=== PATIENT | female | born 1955 | race Caucasian/White ===

== ENCOUNTER → 2018-09-29 | Outpatient (CLI) | payer BC ==
[~2018-09-29] MED LIST: TYLENOL 325MG325 MG PO
== END ==
LOC: MC.RAD 06:56
DX: Z12.31 Encounter for screening mammogram for malignant neoplasm of breast (principal)

== ENCOUNTER → 2019-11-28 | Outpatient (CLI) | payer MEDICARE | LOC: MC.RAD 13:00 | DX: Z12.31 Encounter for screening mammogram for malignant neoplasm of breast (principal) ==

== ENCOUNTER → 2020-08-09 | Outpatient (CLI) | payer MEDICARE, BC | LOC: ZCOL.LAB 10:35 | DX: Z20.828 Contact with and (suspected) exposure to other viral communicable diseases (principal) ==

== ENCOUNTER 2021-01-03 06:02 | Emergency (ER) | payer MEDICARE, BC ==
[~2021-01-03] VITALS: Ht 157.5 cm; Wt 65.0 kg
[2021-01-03 06:07] VITALS: BP 122/74; TEMP 98.3
[2021-01-03] MEDS ORDERED: PERCOCET 325 MG1 TA2 PO (07:11)
[2021-01-03 07:18] VITALS: PULSE 79
== END 2021-01-03 07:22 | disposition home or self-care (01) ==
LOC: COL.ER 06:02
DX: L27.1 Localized skin eruption due to drugs and medicaments taken internally (principal); T45.1X5A Adverse effect of antineoplastic and immunosuppressive drugs, initial encounter; Z85.09 Personal history of malignant neoplasm of other digestive organs; Z90.710 Acquired absence of both cervix and uterus

== ENCOUNTER → 2021-02-14 | Outpatient (CLI) | payer MEDICARE, BC ==
[~2021-02-14] MED LIST changes: +PERCOCET 325 MG1 TA2 PO
== END ==
LOC: MC.RAD 02-05 14:45
DX: Z12.31 Encounter for screening mammogram for malignant neoplasm of breast (principal)

== ENCOUNTER → 2022-03-26 | Outpatient (CLI) | payer MEDICARE, BC | LOC: MC.RAD 09:36 | DX: Z12.31 Encounter for screening mammogram for malignant neoplasm of breast (principal) ==